=== PATIENT | female | born 1950 | race Hispanic/Latino ===

== ENCOUNTER → 2025-03-16 | Outpatient (CLI) | payer MEDICARE ==
--- NOTE | 2025-03-16 19:37 | HMCIMG ---
STUDY: X-RAY OF THE LEFT KNEE, 2 VIEWS HISTORY: Unilateral primary osteoarthritis of the left knee. TECHNIQUE: AP and lateral views of the left knee are submitted for interpretation. COMPARISON: None provided. FINDINGS: Bones and joints: Mild reduction in the medial tibiofemoral joint space with subtle periarticular osteophytes, compatible with early degenerative change. No acute fracture or dislocation. Overall joint alignment is maintained. Soft tissues: No significant joint effusion or periarticular soft tissue swelling is identified. No radiopaque foreign body. IMPRESSION: * Mild medial compartment osteoarthritis of the left knee with joint space narrowing and subtle osteophyte formation, correlating with the reported history of unilateral primary osteoarthritis. * No acute fracture or dislocation of the left knee. /[facility]
== END | disposition home or self-care (01) ==
LOC: RAH 12:05
PROVIDERS: ATTEND Internal Medicine
DX: M17.12 Unilateral primary osteoarthritis, left knee (principal); M25.762 Osteophyte, left knee
CPT/HCPCS: 73560